=== PATIENT | male | born 1965 | race Caucasian/White ===

== ENCOUNTER → 2016-08-09 | Outpatient (REF) | payer OTHER | LOC: M SFHCPLAZ 10:10 | PROVIDERS: ATTEND Family Medicine | DX: R43.8 Other disturbances of smell and taste (principal) ==

== ENCOUNTER → 2021-12-09 | Outpatient (CLI) | payer BC, OTHER | LOC: M LABSMTC 09:05 | PROVIDERS: ATTEND Anesthesiology | DX: Z01.812 Encounter for preprocedural laboratory examination (principal); Z20.822 Contact with and (suspected) exposure to COVID-19 ==

== ENCOUNTER 2021-12-14 08:47 | Day surgery (SDC) | payer BC ==
[~2021-12-14] VITALS: Ht 185.4 cm; Wt 125.6 kg
[~2021-12-14 08:47] MED LIST: NS 1,000 ML IV ONE
[2021-12-14] MEDS ORDERED: propofoL 200 MG/20 ML VIAL As Ordered ONE (10:23)
[2021-12-14] MEDS ORDERED: LIDOCAINE 2% 100MG/5ML SDV (FOR ANES.) As Ordered ONE (11:00)
[2021-12-14 11:10] VITALS: BP 130/68
== END 2021-12-14 11:16 | disposition home or self-care (01) ==
LOC: M OPP 08:47
PROVIDERS: ATTEND Internal Medicine Gastroenterology
DX: Z12.11 Encounter for screening for malignant neoplasm of colon (principal); K62.1 Rectal polyp; K64.0 First degree hemorrhoids

== ENCOUNTER → 2022-02-08 | Outpatient (CLI) | payer BC | LOC: M WUC 14:10 | PROVIDERS: ATTEND Physician Assistant Medical | DX: M19.071 Primary osteoarthritis, right ankle and foot (principal) ==

== ENCOUNTER → 2022-05-24 | Outpatient (REF) | payer BC | LOC: M SMT 15:26 | PROVIDERS: ATTEND Urology | DX: Z30.2 Encounter for sterilization (principal) ==

== ENCOUNTER → 2022-08-24 | Outpatient (REF) | payer BC ==
[2022-08-24 12:47] LABS: SEMEN APPEARANCE OPAQUE (OPAQUE)
[2022-08-24 12:48] LABS: SEMEN VISCOSITY LIQUID (LIQUID); SEMEN VOLUME 1.7 ml (2.0-5.0); WBC CONCENTRATION >1 M/ml (<=1 M/ml)
== END ==
LOC: M SMT 12:40
PROVIDERS: ATTEND Urology
DX: Z30.2 Encounter for sterilization (principal)

== ENCOUNTER → 2023-10-15 | Outpatient (REF) | payer BC ==
[2023-10-15 12:43] LABS: APPEARANCE, URINE CLEAR (CLEAR); BACTERIA, URINE AUTO NEGATIVE (NEGATIVE); BILIRUBIN, URINE AUTO NEGATIVE (NEGATIVE); BLOOD, URINE BLOOD NEGATIVE (NEGATIVE); COLOR, URINE STRAW (YELLOW); GLUCOSE, URINE (UA) AUTO NEGATIVE (NEGATIVE); KETONE, URINE AUTO NEGATIVE (NEGATIVE); LEUKOCYTE ESTERASE, URINE AUTO NEGATIVE (NEGATIVE); MUCUS, URINE SMALL (NEGATIVE); NITRITE, URINE AUTO NEGATIVE (NEGATIVE); PROTEIN, URINE AUTO NEGATIVE (NEGATIVE); RBC, URINE AUTO 0 /HPF (0-3); SPECIFIC GRAVITY URINE AUTO 1.006 (1.002-1.035); SQUAMOUS EPITHELIAL CELL UR AU 0 /HPF (0-6); UROBILINOGEN, URINE AUTO 0.2 mg/dL (0.0-2.0); WBC, URINE AUTO 0 /HPF (0-3)
== END ==
LOC: M LAB REF 11:48
PROVIDERS: ATTEND Internal Medicine
DX: R94.4 Abnormal results of kidney function studies (principal)

== ENCOUNTER → 2023-10-16 | Outpatient (CLI) | payer BC | LOC: M RAD 13:15 | PROVIDERS: ATTEND Internal Medicine | DX: R94.4 Abnormal results of kidney function studies (principal) ==

== ENCOUNTER 2024-04-04 09:17 | Emergency (ER) | payer BC ==
[~2024-04-04] VITALS: Ht 185.4 cm; Wt 127.3 kg
[2024-04-04] MEDS ORDERED: KETOROLAC 30 MG/ML 1ML VIAL As Ordered ONE (09:59)
[2024-04-04] MEDS: ONDANSETRON 4MG 2ML VIAL IV ONE (10:06)
[2024-04-04] MEDS: KETOROLAC 30 MG/ML 1ML VIAL IV ONE (10:06)
[2024-04-04] MEDS: NS 1,000 ML IV ONE (10:09)
[2024-04-04] MEDS ORDERED: CLON0.5T17 (10:21)
[2024-04-04 10:25] LABS: BASO % 0.4 % (0.0-1.0); EOS # 0.1 10^3/uL (0.0-0.5); EOS % 0.5 % (0.0-3.0); HEMATOCRIT 44.6 % (42.0-52.0); HEMOGLOBIN 15.8 g/dl (13.5-17.5); LYMPH # 0.9 10^3/uL (1.5-5.0); LYMPH % 8.5 % (24.0-44.0); MEAN CORPUSCULAR HEMOGLOBIN 30.5 pg (27.0-33.0); MEAN CORPUSCULAR HGB CONC 35.4 g/dl (32.0-36.5); MEAN CORPUSCULAR VOLUME 86.1 fl (80.0-96.0); MONO # 0.5 10^3/uL (0.0-0.8); MONO % 4.2 % (2.0-8.0); NEUTROPHILS # 9.4 10^3/uL (1.5-8.5); NEUTROPHILS % 85.8 % (36.0-66.0); PLATELET COUNT, AUTOMATED 254 10^3/uL (150-450); RED BLOOD COUNT 5.18 10^6/uL (4.30-6.10); WHITE BLOOD COUNT 10.9 10^3/uL (4.0-10.0)
[2024-04-04 10:53] LABS: LIPASE 40 U/L (12-53)
[2024-04-04 10:55] LABS: ALBUMIN 4.9 G/DL (3.2-5.2); ALKALINE PHOSPHATASE 57 U/L (46-116); ALT/SGPT 43 U/L (7.0-40); AST/SGOT 24 U/L (<34); BILIRUBIN,DIRECT 0.1 MG/DL (<0.4); BILIRUBIN,TOTAL 0.5 MG/DL (0.3-1.2); BLOOD UREA NITROGEN 24 MG/DL (9-23); CALCIUM LEVEL 9.8 MG/DL (8.5-10.1); CARBON DIOXIDE LEVEL 25 MMOL/L (20-31); CHLORIDE LEVEL 105 MMOL/L (98-107); CREATININE FOR GFR 0.97 MG/DL (0.70-1.30); GLOMERULAR FILTRATION RATE > 60.0 (>56); GLUCOSE, FASTING 107 MG/DL (60-100); POTASSIUM SERUM 4.3 MMOL/L (3.5-5.1); SODIUM LEVEL 136 MMOL/L (136-145); TOTAL PROTEIN 8.4 G/DL (5.7-8.2)
[2024-04-04] MEDS: MORPHINE 4 MG/ML 1ML VIAL IV ONE (12:48)
[2024-04-04] MEDS ORDERED: METH-1165 PO (13:56)
[2024-04-04] MEDS ORDERED: KETO10TAB PO (13:56)
[2024-04-04 14:11] VITALS: BP 142/77; TEMP 97.6; O2SAT 97
== END 2024-04-04 14:13 | disposition home or self-care (01) ==
LOC: M ED 09:17
DX: R10.9 Unspecified abdominal pain (principal); F41.9 Anxiety disorder, unspecified; Z79.899 Other long term (current) drug therapy
CPT/HCPCS: 74176; 80048; 80076; 81001; 83605; 83690; 85025; 93005; 96361; 96374; 96375; 99284; J1885; J2405

== ENCOUNTER 2024-04-06 16:52 | Emergency (ER) | payer BC ==
[~2024-04-06] VITALS: Ht 185.4 cm; Wt 127.3 kg
[~2024-04-06 16:52] MED LIST changes: +CLON0.5T17; +KETO10TAB PO; +METH-1165 PO; -NS 1,000 ML IV ONE
[2024-04-06] MEDS: ACETAMINOPHEN 500 MG TAB PO ONE (18:03)
[2024-04-06] MEDS: LIDOCAINE 5% (LIDODERM) PATCH TD ONE (18:04)
[2024-04-06] MEDS ORDERED: GABAPENTIN 100 MG CAP PO PRN (20:05)
[2024-04-06] MEDS ORDERED: GABA-1171 PO (20:16)
[2024-04-06 20:22] VITALS: BP 141/98; TEMP 97.3; O2SAT 97
[2024-04-06] MEDS: GABAPENTIN 100 MG CAP PO ONE (20:26)
== END 2024-04-06 20:28 | disposition home or self-care (01) ==
LOC: M ED 16:52
DX: M48.061 Spinal stenosis, lumbar region without neurogenic claudication (principal); Z79.2 Long term (current) use of antibiotics; Z79.899 Other long term (current) drug therapy

== ENCOUNTER 2024-08-19 06:01 | Day surgery (SDC) | payer BC ==
[~2024-08-19] VITALS: Ht 185.4 cm; Wt 131.1 kg
[~2024-08-19 06:01] MED LIST changes: +GABA-1171 PO
[2024-08-19] MEDS ORDERED: ceFAZolin SOD 3 GM in IV 1 EA IV ONE (06:30)
[2024-08-19] MEDS ORDERED: NS (Normal Saline) 0.9% 1,000 ML IV SCH ×2 (06:35→09:30)
[2024-08-19] MEDS ORDERED: ACETAMINOPHEN 1000MG/100ML IV BAG As Ordered ONE (06:56)
[2024-08-19] MEDS ORDERED: propofoL 200 MG/20 ML VIAL As Ordered ONE (06:56)
[2024-08-19] MEDS ORDERED: ONDANSETRON 4MG 2ML VIAL As Ordered ONE (06:56)
[2024-08-19] MEDS ORDERED: LIDOCAINE 2% 100MG/5ML SDV (FOR ANES.) As Ordered ONE (06:56)
[2024-08-19] MEDS ORDERED: SUGAMMADEX SODIUM 500 MG/5 ML VIAL (BRIDION) As Ordered ONE (06:56)
[2024-08-19] MEDS ORDERED: ROCURONIUM BROMIDE 50MG/5ML VIAL As Ordered ONE (06:56)
[2024-08-19] MEDS ORDERED: MIDAZOLAM INJ 2MG/2ML VIAL As Ordered ONE (06:58)
[2024-08-19] MEDS ORDERED: fentaNYL 100 MCG/2 ML INJECTION As Ordered ONE (06:58)
[2024-08-19] MEDS: CelecoXIB 400 MG CAP PO ONE (06:58)
[2024-08-19] MEDS: ceFAZolin SOD 1 GM in DEXTROSE 5% (D5W) ADV/MINI-BAG 50 ML IV ONE (07:45)
[2024-08-19] MEDS: ceFAZolin SOD 2 GM in IV 1 EA IV ONE (07:45)
[2024-08-19] MEDS ORDERED: dexmedeTOMIDine (4MCG/ML)200MCG/50ML BTL (PRECEDEX) As Ordered ONE (07:58)
[2024-08-19] MEDS ORDERED: GLYCOPYRROLATE INJ 0.2 MG/ML 2 ML VIAL As Ordered ONE (08:19)
[2024-08-19] MEDS: LIDOCAINE 1% SDV 30ML VIAL As Ordered ONE (09:24)
[2024-08-19] MEDS ORDERED: KETOROLAC 60MG 2ML VIAL As Ordered ONE (09:25)
[2024-08-19] MEDS ORDERED: HYDROMORPHONE HCL 0.5 MG/ 0.5 ML SYRINGE IV PRN (09:30)
[2024-08-19] MEDS ORDERED: oxyCODONE 5MG TAB PO PRN (09:30)
[2024-08-19] MEDS ORDERED: fentaNYL 100 MCG/2 ML INJECTION IV PRN (09:30)
[2024-08-19] MEDS ORDERED: ONDANSETRON 4MG 2ML VIAL IV PRN (09:30)
[2024-08-19 10:44] VITALS: BP 127/73; TEMP 96.7; O2SAT 96
== END 2024-08-19 10:50 | disposition home or self-care (01) ==
LOC: M SDC 06:01
PROVIDERS: ATTEND Surgery
DX: K40.90 Unilateral inguinal hernia, without obstruction or gangrene, not specified as recurrent (principal); D17.6 Benign lipomatous neoplasm of spermatic cord; K66.0 Peritoneal adhesions (postprocedural) (postinfection); E78.00 Pure hypercholesterolemia, unspecified; G57.12 Meralgia paresthetica, left lower limb; M48.061 Spinal stenosis, lumbar region without neurogenic claudication; G43.909 Migraine, unspecified, not intractable, without status migrainosus; Z79.899 Other long term (current) drug therapy; F41.0 Panic disorder [episodic paroxysmal anxiety]; F40.240 Claustrophobia; G47.00 Insomnia, unspecified; E66.01 Morbid (severe) obesity due to excess calories; Z68.37 Body mass index [BMI] 37.0-37.9, adult
CPT/HCPCS: 49650; 88304; 93005; C1781; J0131; J0665; J0690; J1100; J1596; J1885; J2250; J2405; J3010; S2900

== ENCOUNTER → 2024-08-27 | Outpatient (CLI) | payer BC | LOC: M WUC 08:08 | PROVIDERS: ATTEND Internal Medicine | DX: M25.552 Pain in left hip (principal) ==

== ENCOUNTER → 2025-05-12 | Outpatient (REF) | payer BC ==
[2025-05-15 14:26] LABS: CYSTATIN C 1.04 mg/L (0.52-1.23); CYSTATIN EGFR 75 (>=60)
== END ==
LOC: M LAB REF 13:56
PROVIDERS: ATTEND Internal Medicine
DX: N18.32 Chronic kidney disease, stage 3b (principal); Z82.49 Family history of ischemic heart disease and other diseases of the circulatory system